=== PATIENT | male | born 1960 | race Caucasian/White ===

== ENCOUNTER 2025-04-07 06:16 | Day surgery (SDC) | payer OTHER, SELFPAY ==
[2025-03-12 07:09] VITALS: BMI 27.7
[2025-03-12 09:12] LABS: Hematocrit 46.6 % (39.0-52.0); Hemoglobin 15.6 g/dL (13.0-18.0); Mean Corp Hgb Conc. 33.5 g/dL (33.0-37.0); Mean Corpuscular Volume 87.3 fL (80.0-94.0); Platelet Count 212 10^3/uL (130-400); Red Cell Dist. Width 12.7 % (11.5-14.5)
[2025-03-12 10:31] LABS: ALT (SGPT) 29 U/L (0-50); AST (SGOT) 24 U/L (17-59); Albumin 4.8 g/dl (3.5-5.0); Alkaline Phosphatase 47 U/L (38-126); Blood Urea Nitrogen 22 mg/dl (9-20); Calcium 9.4 mg/dl (8.4-10.2); Carbon Dioxide 28 mmol/L (22-30); Chloride 105 mmol/L (98-107); Estimated Creatinine Clearance 76 ml/min; Glucose 90 mg/dl (70-99); Potassium 4.2 mmol/L (3.5-5.1); Sodium 139 mmol/L (135-145); Total Protein 7.1 g/dl (6.3-8.2); eGFR > 60.00
[2025-04-07] VITALS (8 sets, daily range): BP systolic 134–163; BP diastolic 73–87; BMI 27.7
[2025-04-07] MEDS: LYRICA 150 MG PO (08:17)
[2025-04-07] MEDS: CELEBREX 200 MG PO (08:18)
[2025-04-07] MEDS: METHOCARBAMOL 1500 MG PO (08:18)
[2025-04-07] MEDS: NORMOSOL-R/PLASMALYTE-A 1000 IV (08:19)
[2025-04-07] MEDS: TYLENOL 1000 MG PO (08:19)
== END 2025-04-07 12:31 | disposition home or self-care (01) ==
LOC: SDS 06:16
PROVIDERS: ATTENDING PHYSICIAN Orthopaedic Surgery Orthopaedic Surgery of the Spine; FAMILY PHYSICIAN Internal Medicine; REFERRING PHYSICIAN Internal Medicine Cardiovascular Disease
DX: M48.02 Spinal stenosis, cervical region (principal); M50.222 Other cervical disc displacement at C5-C6 level
CPT/HCPCS: 22551; C1776; 36415; 72020; 80053; 85027; 86850; 86900; 86901; 87070; 93005; C1713